=== PATIENT | female | born 1975 | race Two or more races ===

== ENCOUNTER 2023-12-14 17:47 | Emergency (ER) | payer OTHER ==
[~2023-12-14] VITALS: Ht 142.2 cm; Wt 52.2 kg
[2023-12-14] MEDS ORDERED: SINGULAIR10 MG PO (19:22)
[2023-12-14] MEDS ORDERED: SYMBICORT 16010.2 GM IH (19:25)
[2023-12-14] MEDS ORDERED: PROVENTIL HFA6.7 GM (19:26)
[2023-12-14] MEDS ORDERED: 0.9 % SODIUM CHLORIDE 1,000 ML IV SCH (20:00)
[2023-12-14 20:29] LABS: HEMATOCRIT 40.2 % (36.0-45.00); HEMOGLOBIN 13.6 g/dL (12.0-15.00); MEAN CELL VOLUME 93.4 fL (80.00-100.00); MEAN CORPUSCULAR HEMOGLOBIN 31.5 pg (27.00-32.0); MEAN CORPUSCULAR HGB CONC 33.8 g/dl (32.0-36.0); PLATELET COUNT 178 K/uL (150-450); RED BLOOD COUNT 4.31 M/uL (4.00-6.00); RED CELL DISTRIBUTION WIDTH 13.3 % (11.5-14.5)
[2023-12-14 20:39] LABS: URINE APPEARANCE Cloudy; URINE BILIRRUBIN Negative (NEGATIVE); URINE BLOOD Large; URINE COLOR Yellow; URINE GLUCOSE Negative (NEGATIVE); URINE LEUKOCYTE Moderate; URINE NITRATE Positive; URINE PROTEIN 30 (NEGATIVE); URINE UROBILINOGEN 0.2 E.U./dl
[2023-12-14 20:43] LABS: URINE EPITHELIAL CELLS 31.8 uL (0.0-38.8); URINE RBC 1360.4 uL (0.0-20.8); URINE WBC 314.4 uL (0.0-23.2)
[2023-12-14 20:47] LABS: CALCIUM 9.2 mg/dL (8.5-10.1); CREATININE SERUM 0.76 mg/dL (0.55-1.02); GFR 80.55; POTASSIUM 4.7 mEq/L (3.5-5.1)
[2023-12-14 21:01] LABS: URINE BACTERIA > 9821.5 uL (0.0-1933); URINE MUCUS MODERATE
== END 2023-12-14 22:09 | disposition home or self-care (01) ==
LOC: ER 17:48
PROVIDERS: Emergency Medicine
DX: R31.9 Hematuria, unspecified (principal); Z88.8 Allergy status to other drugs, medicaments and biological substances; Z91.018 Allergy to other foods; Z87.09 Personal history of other diseases of the respiratory system